=== PATIENT | female | born 1960 | race Caucasian/White ===

== ENCOUNTER → 2024-04-18 08:11 | Outpatient (REF) | payer OTHER, SELFPAY | LOC: RST 08:11 | PROVIDERS: ATTENDING PHYSICIAN Internal Medicine; FAMILY PHYSICIAN Internal Medicine | DX: R13.19 Other dysphagia (principal) | CPT/HCPCS: 74230; 92611 ==

== ENCOUNTER 2024-05-28 23:19 | Emergency (ER) | payer OTHER, SELFPAY ==
[2024-05-28 23:22] VITALS: BP 164/94
[2024-05-29] VITALS: BP 149/73
--- NOTE | 2024-05-29 00:05 | ED.GENMED ---
History of Present Illness
General
Chief Complaint: Fall
Source: patient
Exam Limitations: none
Time Seen by Provider: 05/28/24 23:53
History of Present Illness
History of Present Illness:
This is a 63 year old female that comes in with c/o fall. States that she was in her bare feet and she thinks she missed a step. State that she went down about 5 steps on her buttocks and right side. States that she has tenderness over the right rib
area. States that she recently has neck fusion and her neck is sore. States that there was no LOC. States that she was nauseated and is starting with a headache. Denies any fever, chills, chest pain, SOB, abd pain, nausea, vomiting, diarrhea.
dizziness, urinary burning.
Past History
Past History
ED Past Medical History: Asthma, HTN, Hypercholesterolemia and Other (DIONNA, DDD. Back and neck pain, Sleep apnea, Rosacia, )
ED Past Surgical History: Cholecystectomy, Gynecological (Tubal, ) and Orthopedic (Cervical spine fusion)
Social History
Tobacco: Non-smoker
Alcohol: Occasional
Drug: None
Personal:
Living: with family
Review of Systems
Review of Systems
All Other Systems: ROS reviewed and negative except as documented in HPI and ROS
Constitutional: Reports no symptoms; Denies fever or chills
EENT: Reports no symptoms
Respiratory: Reports no symptoms; Denies cough or trouble breathing
Cardiac: Reports no symptoms; Denies chest pain
ABD/GI: Reports nausea; Denies abdominal pain, vomiting or diarrhea
: Reports no symptoms; Denies dysuria, frequency or urgency
Musculoskeletal: Reports neck pain (Neck discomfort, )
Skin: Reports no symptoms
Neurological: Reports headache; Denies dizzy
Psychiatric: Reports no symptoms
Phy Exam
General Physical Exam
General Presentation: no apparent distress
General age: appears stated age
General Skin: warm and dry
General Habitus: normal
General Mental: alert
General Hydration: appears well hydrated
ENT Exam
ENT Exam: TM's normal and pharynx normal
Eye Exam
Eye Exam: EOMI
Cardiovascular Exam
Cardiovascular Exam: regular rate/rhythm, no edema and normal peripheral pulses
Pulmonary Exam
Pulmonary Exam: lungs clear, no respiratory distress, no rales, chest non tender, no crackles, no rhonchi, no wheezing and no cough
Gastrointestinal Exam
Gastrointestinal Exam: normal bowel sounds, non tender, soft, no organomegaly, no pulsatile mass and non distended
Musculoskeletal Exam
Musculoskeletal Exam: full ROM, neck pain (Neck tenderness will remain in collar until Cervical spine cleared) and other (Right lateral rib tenderness with palpation, Negative discomfort for flexion of the elbow and cross over, Negative discomfort
with inversion or eversion and knee flexion. )
Skin Exam
Skin Exam: normal color, warm/dry, no rash, no petechia and other (Contusion noted on the right posterior elbow and right buttocks. )
Psychiatric Exam
Psychiatric Exam: normal mood/affect
Course
Orders/Labs/Results
Orders:
Orders
05/28/24 23:32
CT Cervical Spine W/o Iv Contr Urgent
Comment:
Reason For Exam: fell down 5 steps, hx c spine fusion, c/o neck daniel
CT Head W/o Iv Contrast Urgent
Comment:
Reason For Exam: fell down 5 steps
05/29/24 00:04
Hip, Right 2-3 Views [CR Hip - RT w/wo Pel 2-3 Vw*] Urgent
Comment:
Reason For Exam: fall, pain buttocks area
Include a pelvis x-ray?: Yes
Ribs, Right 3 View W/PA Chest [CR Ribs-right 3 Vw W/pa Chest*] Urgent
Comment:
Reason For Exam: Fall, right rib tenderenss.
05/29/24 00:05
Acetaminophen [Tylenol] 1,000 mg PO NOW STA
05/29/24 01:18
Ibuprofen [Motrin] 600 mg .ROUTE .STK-MED ONE
05/29/24 01:19
Ibuprofen [Motrin] 600 mg PO NOW STA
Vital Signs
Initial and Last Documented VS:
Initial Vital Signs
Temp Pulse Resp BP Pulse Ox
98.1 F 86 20 164/94 97
05/28/24 23:22 05/28/24 23:22 05/28/24 23:22 05/28/24 23:22 05/28/24 23:22
Last Documented Vital Signs
Temp Pulse Resp BP Pulse Ox
98.1 F 88 18 149/73 98
05/28/24 23:22 05/29/24 00:00 05/29/24 00:00 05/29/24 00:00 05/29/24 00:00
MDM/Problems Addressed
Differential Diagnosis Includes:
Contusion arm and leg, Cervical spine fracture.
MDM/Problems Addressed:
This is a 63 year old female that comes in with c/o fall. States that she thinks she missed a step and fell down 5 steps. State that she landed on her buttocks and the right side. States that she has right lower rib tenderness and neck pain.
Will get CT head and neck. X-ray Ribs and hip.
CT cont- streak artifact. Consider MRI for further assessment for degree of any foraminal/spinal stenosis. Back into see patient. Hard cervical collar removed. Reviewed CT of head and neck.
Into see patient. Explained that the hip and pelvis are negative for fractures. Chest x-ray and ribs appears negative. However, explained that sometimes a rib fracture is just not seen. Nothing different would be done. Patient to take Deep breaths
to open up the lower lung taylor. Tylenol and ice for pain. Follow up with the Orthopedic surgeon if she continues with neck pain. Patient to return with any concerns.
Chronic conditions affecting care:
Cervical spine fusion
Acute Exacerbation and/or Progression of Chronic Illness:
NA
*Radiology
Radiology exam reviewed: preliminary read by ED provider (Chest/ribs right- Negative for any active chest disease or rib fractures. Right hip/Pelvis- Negative for any fractures. ), radiology read reviewed (CT head and cervical spine- Head: NO
acute intracranial findings. Senescent changes. Mild mucosal thickening of the right sphenoid chamber. C-spine: NO evidence of acute fracture of dislocation. Please note that given the presence of a rigid spine with a C3-C6 Posterior instrumented
hardware fusion), all reviewed NAD by ED Provider (CT cont-and decompression with interbody spacers, the patient is at high risk for spinal injury, and if there is a persistent concern, consider MRI to further evaluate for spinal injury not
detectable by CT modality. Multilevel degenerative change. There is a prominent C5-C6 posterior disc osteophyt) and other (CT cont-complex, associated with likely at leaset mild to moderate spnal stenosis. Please note that CT is limited and has low
sensitivity for assessment for degree of spinal stenosis, with assessement of the spinal canal in particular nondiagnostic at the C3-C6 levels due to metallic hardware )
*Pulse Oximetry
Patient hypoxic: no
*EKG
Interpreted by ED Provider?: NA
Rate: EKG- N/A
*[employer] Interpretation
Rate: [employer]- N/A
*Critical Care Note
Total Time (30-74mins, 75-104mins- exclusive of procedures): Not Applicable
ED Attending Note
-
Portions of this chart may have been created with voice recognition software.� Occasional wrong word or��sound alike� substitutions may have occurred due to the inherent limitations of voice recognition software.
Discharge Plan
Departure
Patient Disposition: Home (Routine Discharge)
Date of Disposition: 05/29/24
Time of Disposition: 01:56
Patient with high blood pressure during this ER visit?: Yes
Condition: Good
Covid-19: Not Applicable
Discharge Problem:
Accidental fall, Contusion
Instructions: Contusion (DC), Preventing falls in adults, BLOOD PRESSURE
Prescriptions:
No Action
pravastatin 40 MG tablet
40 mg PO DAILY
calcium carbonate 600 MG tablet
1,200 mg PO DAILY
metoprolol succinate 25 MG tablet extended release 24 hr
12.5 mg PO DAILY
cholecalciferol (vitamin D3) 2,000 UNIT tablet
2,000 unit PO DAILY
cyclobenzaprine [Flexeril] 10 mg Tablet
10 mg PO BID PRN (Reason: as needed)
magnesium 500 mg Tablet
500 mg PO DAILY
gabapentin [Neurontin] 600 mg Tablet
600 mg PO QID
amlodipine-benazepril [Lotrel] 5-10 mg Capsule
1 cap PO DAILY
diclofenac sodium [Voltaren] 75 mg Tablet,Delayed Release (Dr/Ec)
75 mg PO BID
Rocephin 2 gram Piggyback
2 g IV Q24H
duloxetine [Cymbalta] 30 mg Capsule,Delayed Release(Dr/Ec)
30 mg PO DAILY
Referrals:
Varinder Mclean MD [Family Provider] - Call in 1-3 days for appt
Activity Restrictions/Additional Instructions:
As discussed, your CT of the head and cervical spine are negative for any acute process or fracture. Your hip is negative for fractures and your Chest x-ray with ribs appears negative for any rib fractures or active chest disease. Please use ice to
any area that is sore as you will be more sore tomorrow then today. Tylenol 1000mg every 6 hours as needed for pain and you can alternate with Ibuprofen 600mg every 6 hours with food. Follow up with the family doctor as needed. IF YOU HAVE ANY OTHER
CONCERNS PLEASE RETURN TO THE EMERGENCY ROOM
Interventions
Interventions:
*Risk Screen - Suicide Last Done: 05/28/24 23:22
*General Assessment Last Done: 05/28/24 23:22
*Neglect/Abuse Screening Last Done: 05/28/24 23:22
*ED COVID-19 Vaccine History Last Done: 05/28/24 23:22
ED-Musculoskeletal Assessment Last Done: 05/29/24 00:12
ED- Neurological Assessment Last Done: 05/29/24 00:12
ED-Skin Assessment Last Done: 05/29/24 00:12
Discharge Date and Time
Print Language: LATVIAN
[2024-05-29 00:12] VITALS: BMI 31.9
[2024-05-29] MEDS: TYLENOL 1000 MG PO (00:19)
[2024-05-29] MEDS: MOTRIN 600 MG PO (01:20)
== END 2024-05-29 02:15 | disposition home or self-care (01) ==
LOC: EMR 23:19
PROVIDERS: EMERGENCY PHYSICIAN Emergency Medicine; FAMILY PHYSICIAN Internal Medicine
DX: S50.01XA Contusion of right elbow, initial encounter (principal); S30.0XXA Contusion of lower back and pelvis, initial encounter; W10.9XXA Fall (on) (from) unspecified stairs and steps, initial encounter; J45.909 Unspecified asthma, uncomplicated; I10 Essential (primary) hypertension; E78.00 Pure hypercholesterolemia, unspecified; G47.33 Obstructive sleep apnea (adult) (pediatric); Z98.1 Arthrodesis status; Z90.49 Acquired absence of other specified parts of digestive tract
CPT/HCPCS: 99284; 70450; 71101; 72125; 73502

== ENCOUNTER 2024-06-20 06:08 | Day surgery (SDC) | payer OTHER, SELFPAY ==
[2024-06-20 14:06] VITALS: BMI 30.2
[2024-06-20 14:07] VITALS: BP 155/75; BMI 30.2
[2024-06-20 15:47] VITALS: BP 138/67
[2024-06-20 16:00] VITALS: BP 130/78
[2024-06-20 16:17] VITALS: BP 145/73
== END 2024-06-20 16:34 | disposition home or self-care (01) ==
LOC: SDS 06:08
PROVIDERS: ATTENDING PHYSICIAN Internal Medicine
DX: K25.9 Gastric ulcer, unspecified as acute or chronic, without hemorrhage or perforation (principal); K31.89 Other diseases of stomach and duodenum; R13.14 Dysphagia, pharyngoesophageal phase; Q39.9 Congenital malformation of esophagus, unspecified
CPT/HCPCS: 43239; 88305; 88342